=== PATIENT | male | born 1985 | race African-American/Black ===

== ENCOUNTER 2020-10-10 14:42 | Inpatient (IN) ==
[2020-10-10 15:36] LABS: Bacteria,Urine Few per hpf (None-Few); Bilirubin,Urine Small (Negative); Blood,Urine Negative (Negative); Clarity,Urine Clear (Clear); Color,Urine Yellow (Yellow); Glucose,Urine (UA) Normal (Normal); Ketones,Urine Trace mg/dL (Negative); Leukocyte Esterase,Urine Small (Negative); Mucus,Urine Few per lpf (None-Few); Nitrite,Urine Negative (Negative); Protein,Urine 30 mg/dL (Neg-Trace); RBC,Urine 0-3 per hpf (0-3); Specific Gravity,Urine > 1.030 (1.010-1.025); Squamous Epithelial Cell,Urine Few per hpf (None-Few); Urobilinogen,Urine >=8.0 mg/dL (Normal)
[2020-10-10 16:07] LABS: Basophils % 0.3 %; Eosinophils # 0.2 K/mcL (0.0-0.6); Eosinophils % 1.3 %; Hematocrit 45.9 % (37.5-50.1); Hemoglobin 16.4 g/dL (12.9-16.9); Immature Granulocytes % 0.5 % (0-4); Mean Corpuscular HGB Conc 35.7 g/dL (31.6-35.5); Mean Corpuscular Hemoglobin 31.9 pg (28.0-33.3); Mean Corpuscular Volume 89.3 fL (83.0-100.0); Mean Platelet Volume 9.2 fL (9.4-12.4); Monocytes # 0.9 K/mcL (0.0-1.3); Monocytes % 7.9 %; Neutrophils # 8.1 K/mcL (1.6-8.9); Platelet Count 179 K/mcL (140-400); Red Blood Count 5.14 M/mcL (4.19-5.50); Red Cell Distribution Width 11.6 % (11.5-14.5); White Blood Count 11.2 K/mcL (4.3-11.1)
[2020-10-10 16:25] LABS: Amphetamine Screen,Urine Positive ng/mL (Cutoff=1000); Barbiturate Screen,Urine Negative ng/mL (Cutoff=200); Benzodiazepines Screen,Urine Negative ng/mL (Cutoff=200); Cannabinoid Screen,Urine Positive ng/mL (Cutoff = 50); Cocaine Screen,Urine Negative ng/mL (Cutoff= 300); Opiate Screen,Urine Negative ng/mL (Cutoff=300); Phencyclidine Screen,Urine Negative ng/mL (Cutoff=25)
[2020-10-10 16:27] LABS: Acetaminophen < 10 mcg/mL (10-20); BUN/Creatinine Ratio 16 (6-26); Blood Urea Nitrogen 17 mg/dL (6-20); Calcium 9.5 mg/dL (8.6-10.3); Carbon Dioxide 25 mEq/L (23-29); Chloride 104 mEq/L (98-107); Chol/HDL Ratio 3.8 (0-4.9); Cholesterol 127 mg/dL (< 200); Ethanol < 10 mg/dL (Less than 10); Glucose 86 mg/dL (70-105); HDL Cholesterol 33 mg/dL (40-59); LDL Cholesterol,Calculated 81 mg/dL (< 100); Osmolality,Calculated 283 (280-300); Potassium 3.9 mEq/L (3.5-5.1); Salicylate < 2.5 mg/dL (15.0-30.0); Sodium 136 mEq/L (136-145); Triglycerides 66 mg/dL (< 150); eGFR For African Americans > 60 (> 60); eGFR For Non-African Americans > 60 (> 60)
[2020-10-10 16:36] LABS: Estimated Average Glucose 91 mg/dl; Hemoglobin A1C 4.8 %
[2020-10-10 22:35] LABS: Influenza A PCR Negative (Negative); Influenza B PCR Negative (Negative); Resp. Syncytial Virus PCR Negative (Negative)
[2020-10-10 22:36] LABS: SARS-CoV-2 by PCR (In House) Negative (Negative)
[2020-10-10] MEDS ORDERED: Acetaminophen 325 MG TABLET PO PRN (23:14)
[2020-10-10] MEDS ORDERED: Haloperidol Lactate 5 MG/ML VIAL IM PRN (23:14)
[2020-10-10] MEDS ORDERED: *HR* LORazepam 1 MG TABLET PO PRN (23:14)
[2020-10-10] MEDS ORDERED: QUEtiapine Fumarate 25 MG TABLET PO PRN (23:14)
[2020-10-10] MEDS ORDERED: *HR* LORazepam 2 MG/ML VIAL IM PRN (23:14)
[2020-10-10] MEDS ORDERED: haloperidoL 5 MG TABLET PO PRN (23:14)
[2020-10-11] MEDS: hydrOXYzine pamoate 25 MG CAPSULE PO PRN ×2 (00:11→21:30)
[2020-10-11] MEDS ORDERED: Mag Hydrox/Al Hydrox/Simeth 30 ML UDC PO PRN (09:10)
[2020-10-11] MEDS ORDERED: MOM Conc 10 ML UD.LIQ PO PRN (09:10)
[2020-10-11] MEDS: QUEtiapine Fumarate 25 MG TABLET PO SCH (21:29)
[2020-10-12] MEDS: QUEtiapine Fumarate 25 MG TABLET PO SCH ×2 (11:51→21:56)
[2020-10-12] MEDS: hydrOXYzine pamoate 25 MG CAPSULE PO PRN (21:56)
[2020-10-13] MEDS: QUEtiapine Fumarate 25 MG TABLET PO SCH ×2 (11:25→20:07)
[2020-10-13] MEDS: hydrOXYzine pamoate 25 MG CAPSULE PO PRN ×2 (15:26→20:07)
[2020-10-14 09:51] VITALS: BP 126/73
[2020-10-14] MEDS: QUEtiapine Fumarate 25 MG TABLET PO SCH (10:27)
== END 2020-10-14 10:40 | disposition home or self-care (01) | DRG 751 ==
LOC: EMEROOARM 14:42 → 1ANU 23:08
PROVIDERS: ADMIT Psychiatry & Neurology Psychiatry; ATTEND Psychiatry & Neurology Psychiatry